=== PATIENT | male | born 1975 | race Two or more races ===

== ENCOUNTER 2017-01-13 01:48 | Emergency (ER) | payer OTHER ==
--- NOTE | 2017-01-13 02:59 | ED PDOC ---
HPI: Psych/Substance Abuse Time Seen by Provider: 01/13/17 01:55 Chief Complaint (Nursing): Alcohol Ingestion Chief Complaint (Provider): ETOH History Per: Patient, EMS Additional Complaint(s): patient brought in by ems after being found sleeping on sidewalk, patient refusing to answer questions and refusing vitals Past Medical History Reviewed: Nursing Documentation, Vital Signs, Unable To Obtain Vital Signs: Last Vital Signs Temp 98 F 01/13/17 02:16 Pulse 77 01/13/17 02:16 Resp 19 01/13/17 02:16 BP 97/60 L 01/13/17 02:16 Pulse Ox 96 01/13/17 02:16 - Family History Family History: States: Unknown Family Hx - Allergies Allergies/Adverse Reactions: Allergies Allergy/AdvReac Type Severity Reaction Status Date / Time Unobtainable Allergy Verified 01/13/17 02:06 Review of Systems Review Of Systems: ROS cannot be obtained secondary to pt's inabilty to answer questions. Physical Exam - Reviewed Nursing Documentation Reviewed: Yes Vital Signs Reviewed: Yes - Physical Exam Appears: Positive for: Well, Non-toxic, No Acute Distress Head Exam: Positive for: ATRAUMATIC, NORMAL INSPECTION, NORMOCEPHALIC Skin: Positive for: Normal Color, Warm, DRY Eye Exam: Positive for: EOMI, Normal appearance, PERRL ENT: Positive for: Normal ENT Inspection Neck: Positive for: Normal, Painless ROM Cardiovascular/Chest: Positive for: Regular Rate, Rhythm Respiratory: Positive for: CNT, Normal Breath Sounds Gastrointestinal/Abdominal: Positive for: Normal Exam, Bowel Sounds, Soft Back: Positive for: Normal Inspection Extremity: Positive for: Normal ROM Neurologic/Psych: Positive for: Alert - Laboratory Results Result Diagrams: 01/13/17 02:45 01/13/17 02:45 - ECG O2 Sat by Pulse Oximetry: 96 Medical Decision Making Medical Decision Making: ETOH resulted 362. Pt place don 1:1 for safety concerns. remained calm in ED, no restraints needed. 0545: Pt responding to verbal stimuli. unable to state his name or where he is. Case endorsed to ED MD, Dr. Donohue at 0600 pending sobriety Disposition - Clinical Impression Clinical Impression: Alcohol ingestion - Patient ED Disposition Is Patient to be Admitted: No - Disposition Disposition: Transfer of Care (ED MD) Disposition Time: 05:48 Condition: STABLE - POA Present On Arrival: None
[2017-01-13 03:09] LABS: BASO % 0.4 % (0.0-2.0); EOS # 0.2 K/uL (0.0-0.7); EOS % 2.1 % (0.0-4.0); HEMATOCRIT 41.2 % (35.0-51.0); LYMPH # 3.3 K/uL (1.0-4.3); LYMPH % 32.6 % (20.0-40.0); MEAN CELL VOLUME 91.6 fl (80.0-94.0); MEAN CORPUSCULAR HEMOGLOBIN 30.2 pg (27.0-31.0); MEAN PLATELET VOLUME 8.1 fl (7.2-11.7); MONO # 0.7 K/uL (0.0-0.8); MONO % 6.4 % (0.0-10.0); NEUT # 5.9 K/uL (1.8-7.0); NEUT % 58.5 % (50.0-75.0); NRBC % 0.1 % (0.0-0.0); RED CELL DISTRIBUTION WIDTH 14.8 % (11.5-14.5); WHITE BLOOD COUNT 10.2 K/uL (4.8-10.8)
[2017-01-13 03:12] LABS: CHLORIDE 108 mmol/L (98-107); POTASSIUM 4.1 MMOL/L (3.6-5.0); SODIUM 148 mmol/l (132-148)
[2017-01-13 03:14] LABS: AST/SGOT 43 U/L (17-59); BILIRUBIN,TOTAL 0.2 mg/dl (0.2-1.3); CARBON DIOXIDE 25 mmol/L (22-30); GFR AFRICAN-AMERICAN > 60
[2017-01-13 03:15] LABS: ALB/GLOB RATIO 1.2 (1.0-2.1); ALKALINE PHOSPHATASE 88 U/L (38-126); ALT/SGPT 25 U/L (21-72); BLOOD UREA NITROGEN 12 mg/dl (9-20); CALCIUM 8.4 mg/dL (8.4-10.2); GLUCOSE,RANDOM 103 mg/dL (75-110); TOTAL PROTEIN 7.9 G/DL (6.3-8.2)
[2017-01-13 03:36] LABS: ALCOHOL SERUM 362 mg/dl (0-10)
--- NOTE | 2017-01-13 05:55 | ED PDOC ---
- Laboratory Results Result Diagrams: 01/13/17 02:45 01/13/17 02:45 - ECG O2 Sat by Pulse Oximetry: 96 (RA) Pulse Ox Interpretation: Normal Medical Decision Making Medical Decision Making: Receiving Sign Out: Pt signed out to me by Jaki Solano PA-C pending clinical sobriety. Scribe Attestation: Documented by Stephanie Shah acting as a scribe for Helder Wilson MD. Provider Attestation: All medical record entries made by the Scribe were at my direction and personally dictated by me. I have reviewed the chart and agree that the record accurately reflects my personal performance of the history, physical exam, medical decision making, and the department course for this patient. I have also personally directed, reviewed, and agree with the discharge instructions and disposition. Disposition - Clinical Impression Clinical Impression: Alcohol ingestion - POA Present On Arrival: None - Disposition Disposition: Transfer of Care Disposition Time: 07:00 Condition: STABLE Patient Signed Over To: Ileana Wilson Handoff Comments: pending clinical sobriety Progress Note - Review of Symptoms Events since last encounter: Time: 0700 Pt signed out to Dr. Katie acosta clinical sobriety.
--- NOTE | 2017-01-13 07:05 | ED PDOC ---
- Laboratory Results Result Diagrams: 01/13/17 02:45 01/13/17 02:45 - ECG O2 Sat by Pulse Oximetry: 96 (RA) Medical Decision Making Medical Decision Makin signed over to me by Timo Wilson MD pending clinical sobriety. 0900 vitals are stable 1034 resting comfortably 1156 patient awake, alert, oriented x3, steady gait. he had breakfast and wants to be discharged. stable for discharge. Disposition - Clinical Impression Clinical Impression: Alcohol intoxication - POA Present On Arrival: None - Disposition Disposition: Routine/Home Disposition Time: 11:58 Condition: IMPROVED Additional Comments - Additional Comments Additional Comments: Scribe Attestation: Documented by Christian Valdovinos acting as a scribe for Ileana Wilson MD. Provider Attestation: All medical record entries made by the Scribe were at my direction and personally dictated by me. I have reviewed the chart and agree that the record accurately reflects my personal performance of the history, physical exam, medical decision making, and the department course for this patient. I have also personally directed, reviewed, and agree with the discharge instructions and disposition.
[2017-01-13 12:02] VITALS: BP 100/56; PULSE 71; RESP 14; TEMP 98.7; O2SAT 95
[2017-01-13 12:17] LABS: RBC URINE 8 /hpf (0-3); URINE BILIRUBIN NEGATIVE (NEGATIVE); URINE BLOOD NEGATIVE (NEGATIVE); URINE COLOR YELLOW (YELLOW); URINE GLUCOSE (UA) NEG (Normal); URINE KETONE NEGATIVE (NEGATIVE); URINE LEUKOCYTE ESTERASE MOD Leu/uL (Negative); URINE PROTEIN NEGATIVE (NEGATIVE); URINE UROBILINOGEN 0.2-1.0 mg/dL (0.2-1.0); WBC URINE 63 /hpf (0-5)
== END 2017-01-13 12:07 | disposition home or self-care (01) ==
LOC: H.ER 01:48 → MERGE 01:48 → H.ER 12:07
DX: F10.129 Alcohol abuse with intoxication, unspecified (principal)